=== PATIENT | female | born 1965 | race Caucasian/White ===

== ENCOUNTER 2019-03-28 08:34 | Emergency (ER) | payer SELFPAY ==
[2019-03-28 08:35] VITALS: BP 199/113; PULSE 82; RESP 18; TEMP 36.6; O2SAT 99; BMI 51.0
--- NOTE | 2019-03-28 08:55 | EKG12_ITS ---
Test Reason : CP Blood Pressure : / mmHG Vent. Rate : 080 BPM Atrial Rate : 080 BPM P-R Int : 144 ms QRS Dur : 072 ms QT Int : 378 ms P-R-T Axes : 035 034 004 degrees QTc Int : 435 ms Normal sinus rhythm Normal ECG Confirmed by JAMIE GODWIN, ELIAS ([id number]), clinical editor BO ANDREA ([id number]) on 03/31/2019 9:36:26 AM Referred By: THOMAS Confirmed By:ELIAS AYALA MD
[2019-03-28 09:05] VITALS: BP 166/109; PULSE 77; RESP 16; O2SAT 96
[2019-03-28] MEDS: Aspirin 81 MG TAB.CHEW 324 MG PO (09:10)
--- NOTE | 2019-03-28 09:18 | ED.DCSUM_ITS ---
History of Present Illness Chief Complaint: Chest Pain Informant: Patient Narrative: Patient presenting for evaluation secondary to chest pain and hypertension. Patient has an underlying history of hypertension and prediabetes. Patient reports that she was at the primary care office today getting routine blood work, was noted to be hypertensive. Patient does take lisinopril as well as a water pill. No recent changes in her dosages or missed dosages. Patient states that since Sunday she has been getting intermittent chest pain. She describes this as a sharp type sensation that is located over the left side of her chest that will come and go without any sort of exacerbating relieving factors and will only last couple of seconds at a time. She denies that there is any sort of lightheadedness palpitations or shortness of breath associated with this. No exertional component with it. Patient denies any DVT or PE risk factors such as recent travel surgery hemoptysis or exogenous hormone use. Patient has never had a cardiac stress test in the past. Review of systems othe rwise negative. Past Medical History - Allergies and Home Meds Allergies/Adverse Reactions: Allergies No Known Allergies Allergy (Verified 03/28/19 08:37) Primary Care Physician: Ciara Cabral [Primary Care Provider] - Past Medical History: - - Hypertension, prediabetes Smoking Status: Never smoker Review of Systems All systems negative except as indicated General: Denies: Chills, Fever, Sweats Eyes: Denies: Visual changes - bilaterally, Diplopia ENT: Denies: Rhinorrhea, Sore throat Cardiovascular: Reports: Chest pain Respiratory: Denies: Dyspnea, Cough, Dyspnea on exertion Gastrointestinal: Denies: Abdominal pain, Nausea, Vomiting, Diarrhea, Melena, Hematochezia Genitourinary: Denies: Dysuria, Hematuria, Frequency Musculoskeletal: Denies: Back pain, Extremity Pain Skin: Denies: Rash, Wounds Neurological: Denies: Headache, Weakness, Numbness Psych: Denies: Depression Endocrine: Denies: Polyuria Hematologic: Denies: Easy bruising, Easy bleeding Allergy: Denies: Swelling of the mouth Physical Exam Vital Signs/Narrative: Vital Signs Temp Pulse Resp BP Pulse Ox 03/28/19 09:05 77 16 166/109 H 96 03/28/19 08:35 98 F 82 18 199/113 H 99 Inital Vital Signs reviewed: Yes General: Well nourished, Well developed, No Acute Distress Head: Normocephalic, Atraumatic Eyes: Perrl, EOMI ENT: Moist mucous membranes, No rhinorrhea Neck: Supple, Nontender Cardiovascular: Regular rate, Regular rhythm, No murmurs Respiratory: No distress, CTA bilaterally, Chest nontender Abdomen: Soft, Nontender, Nondistended, Normal bowel sounds Back: Nontender, Normal Inspection Extremities: Nontender, Edema - Trace bilateral lower extremity peripheral edema Skin: Normal color, No rash Neurological: Alert, Oriented x3, Cranial nerves II-XII grossly intact, Normal Strength, Normal Sensation Psychological: Normal affect, Normal Mood Diagnostic/Tx/Re-eval Chest X-Ray - ED: 2 View, Read by ED Physician, Read by Radiologist, Normal - EKG Initial EKG Interpretation: - - Normal sinus rhythm with a rate of 80. Isoelectric ST segments normal T waves. No evidence of acute ischemia or arrhythmia. - Medical Decision Making Patient presented for evaluation secondary to chest pain hypertension. EKG demonstrates no evidence of ischemic changes. CBC chemistry and troponin found to be unremarkable. PA and lateral chest x-ray by my personal review as well as radiology also found to be negative. Patient's pain seems rather atypical, her heart score is a 3. I do not believe that she requires admission or further o bservation. She was given reassurance. Patient's blood pressure did improve while in the emergency department. Patient was recommended to follow-up with primary care for titration of her blood pressure medications. ED Disposition - Plan for ED Patient: Disposition: Home or Assisted Living Diagnosis: Chest pain, Hypertension Instructions: CHEST PAIN, Uncertain Cause Referrals: Ciara Cabral [Primary Care Provider] - 5-7 Days
[2019-03-28 09:19] LABS: Absolute Lymphocyte Count 1.02 X10^3/uL (0.83-4.51); Absolute Neutrophil Count 1.4 X10^3/uL (2.0-7.7); Basophil# 0.03 X10^3/uL; Eosinophil# 0.17 X10^3/uL; Eosinophils% 5.6 % (0-5); Hematocrit 40.5 % (37-47); Hemoglobin 13.4 g/dL (12.0-15.0); Lymphocyte # 1.02 X10^3/ul (4.0); Lymphocyte % 33.3 % (19-41); Mean Corp Hgb Conc 33.1 g/dL (32-36); Mean Corpuscular Hgb 29.6 pg (27.0-32.0); Mean Corpuscular Volume 89.4 fL (81-99); Mean Platelet Vol. 10.4 fl (6.2-12.0); Monocyte# 0.41 X10^3/uL; Monocyte% 13.4 % (0-10); NRBC Flagged by Analyzer 0 % (0-5); Neutrophil # 1.43 X10^3/uL (2.7-7.7); Neutrophil % 46.7 % (47-70); Platelet Count 217 K/mm3 (150-450); RBC Distribution Width CV 12.4 % (11.6-14.6); RBC Distribution Width SD 40.5 fl (35.1-43.9); Red Blood Count 4.53 M/mm3 (4.2-5.4); White Blood Count 3.1 K/mm3 (4.4-11.0)
--- NOTE | 2019-03-28 09:20 | RAD_ITS ---
STUDY: X-RAY CHEST REASON FOR EXAM: Female, 53 years old. Upper left-sided chest pain. TECHNIQUE: PA and lateral views of the chest. COMPARISON: Comparison is made with prior study dated January 06, 2016. FINDINGS: EKG electrodes are seen. The lungs are clear and expanded. Scattered calcified granulomas at the right lung base. There is no demonstrated pleural abnormality. Normal size heart. Normal mediastinum and daina. Normal visualized pulmonary arteries. There is atherosclerotic tortuosity of the aortic arch and descending thoracic aorta. There are diffuse degenerative changes of the visualized thoracic spine. Normal visualized ribs, clavicles, and shoulders. There is no demonstrated abnormality of the visualized soft tissue structures of the upper abdomen. RAD/Chest PA and Lateral IMPRESSION: No acute abnormality is seen. Electronically Signed: Niranjan Paz, at 9:58 EST , Service support ,
[2019-03-28 09:32] LABS: Anion Gap 6 (5-15); BUN 14 mg/dL (7-18); BUN/Creat Ratio 19.3 RATIO (10-20); Calcium,Total 8.8 mg/dL (8.5-10.1); Chloride 109 mmol/L (98-107); Creatinine, Serum 0.73 mg/dL (0.55-1.02); EST Glomerular Filtration Rate 88 mL/min (>60); Est Glom Filt Rate - Afr Amer 107 mL/min (>60); Estimated Creatinine Clearance 65.71 ml/min; Glucose 115 mg/dL (74-106); Potassium 3.8 mmol/L (3.5-5.1); Sodium Level 143 mmol/L (136-145)
[2019-03-28 11:05] VITALS: BP 107/95; PULSE 76; O2SAT 98
== END 2019-03-28 11:19 | disposition home or self-care (01) ==
PROVIDERS: Emergency Provider Emergency Medicine
DX: R07.89 Other chest pain (principal); I10 Essential (primary) hypertension; R73.03 Prediabetes; Z79.84 Long term (current) use of oral hypoglycemic drugs; Z79.899 Other long term (current) drug therapy
CPT/HCPCS: 71046; 80048; 84484; 85025; 93005; 99284; A4216